=== PATIENT | male | born 1945 | race Caucasian/White ===

== ENCOUNTER → 2019-04-16 13:15 | Outpatient (CLI) | payer MEDICARE, OTHER, SELFPAY ==
--- NOTE | 2019-04-16 13:19 | CA_ITS ---
APPROVED REPORT EXAM: Comprehensive 2D, Doppler, and color-flow Echocardiogram Assistant [employer]: Debra Looney RT(R) Ht: 5 ft 8 in Wt: 169lbs BSA: 1.90 BP: 145/75 mmHg Indications: MV regurgitation, Pul HTN, COPD, SOB, AFIB M-Mode Dimensions RVDd 1.99 cm (0.9-2.6) LA Diam 4.61 cm (1.9-4.0) LVDd 4.92 cm (3.5-5.7) Ao Diam 3.63 cm (2.0-3.7) LVDs 4.29 cm (3.5-5.7) AV Cusp 1.65 cm (1.5-2.6) IVSd 1.26 cm (0.6-1.1) PWd 1.67 cm (0.6-1.1) EF (Teich) 27.50% FS 12.80% EDV (Teich) 113.90 mL ESV (Teich) 82.60 mL LV Diastology E/A Ratio 3.6 Mitral Valve MV E Max Teto. 96.00 (40-130 cm/s) MV A Velocity 27.00 (40-130 cm/s) E/A Ratio 3.52 MV Decel. Time 15.00 (160-240 ms) Left Ventricle Left atrium is mildly enlarged, left ventricle is normal size, mild concentric left ventricular hypertrophy, visually estimated ejection fraction 45%, there appears to be moderate hypokinesis involving the inferior basal wall. There is abnormal septal motion. Diastolic parameters are inconclusive. Right Ventricle Right atrium and right ventricle mildly enlarged with normal contractility. Aortic Valve Aortic valve is thickened and calcified leaflet continue to display good mobility, there is no aortic stenosis, there is mild aortic insufficiency. Mitral Valve Mitral valve is grossly normal, there is mild mitral regurgitation. Tricuspid Valve Tricuspid valve is grossly normal, there is mild tricuspid regurgitation, tricuspid regurgitation jet velocity is inadequate for calculation of the right ventricular systolic pressure. Pulmonic Valve Pulmonic valve is poorly visualized. Great Vessels Aortic root is normal size. Pericardium No significant pericardial effusion noted. Conclusion 1. Mildly biatrial enlargement, normal left ventricular size, mild concentric left ventricular hypertrophy, visually estimated ejection fraction of 45% with segmental wall motion abnormality described above, diastolic parameters are inconclusive. 2. Mildly enlarged right ventricle with normal contractility. 3. Mild aortic, mild mitral and tricuspid regurgitation. 4. No significant pericardial effusion noted. Electronically signed by : Geremias Mensah, 04/17/2019 13:39:56
== END ==
PROVIDERS: PCP Nurse Practitioner; Visit Provider Physician Assistant
DX: I27.20 Pulmonary hypertension, unspecified (principal); R06.02 Shortness of breath; I34.0 Nonrheumatic mitral (valve) insufficiency
CPT/HCPCS: 93306